=== PATIENT | female | born 1970 | race Caucasian/White ===

== ENCOUNTER 2019-10-27 19:19 | Emergency (ER) | payer MEDICAID ==
[~2019-10-27] VITALS: Ht 162.6 cm; Wt 73.3 kg
[2019-10-27] MEDS ORDERED: METOCLOPRAMIDE 5 MG/ML, 2ML ONE (20:19)
--- NOTE | 2019-10-27 20:23 | NUR ---
PIV PLACED, LABS DRAWN. DIE HOLDER PER JUL. IVF RUNNING.
--- NOTE | 2019-10-27 20:25 | NUR ---
MEDICAL RECORDS REQ FROM [facility].
[2019-10-27] MEDS ORDERED: METOCLOPRAMIDE 5 MG/ML, 2ML IVPush ONE (20:30)
[2019-10-27] MEDS ORDERED: SODIUM CHLORIDE 0.9% 1,000ML IVBOLUS ONE (20:30)
--- NOTE | 2019-10-27 21:00 | NUR ---
PT AMBULATED TO RESTROOM WITH STEADY GAIT. TO PROVIDE URINE SAMPLE. UA COLLECTED AND TAKEN TO LAB.
[2019-10-27 21:10] LABS: HCG UR SG 1.036 (1.003-1.030)
[2019-10-27 21:14] LABS: MICROSCOPIC INDICATED
[2019-10-27 21:14] LABS: ALANINE AMINOTRANSFERASE 24 U/L (12-78); ALBUMIN 4.4 g/dL (3.4-5.0); ANION GAP 9 mmol/L (5-15); CALCIUM 9.1 mg/dL (8.5-10.1); CHLORIDE 98 mmol/L (98-107); CREATININE 1.16 mg/dL (0.55-1.02)
[2019-10-27 21:16] LABS: ALKALINE PHOSPHATASE 54 U/L (45-117); BILIRUBIN,TOTAL 1.9 mg/dL (0.2-1.0); TOTAL PROTEIN 7.9 g/dL (6.4-8.2)
[2019-10-27 21:21] LABS: AMPHETAMINE SCREEN, URINE Negative (Negative); BARBITURATE SCREEN, URINE Negative (Negative); BENZODIAZEPINE SCREEN, URINE Positive (Negative); CANNABINOID SCREEN, URINE Positive (Negative); COCAINE SCREEN, URINE Negative (Negative); METHADONE SCREEN, URINE Negative (Negative); OPIATE SCREEN, URINE Negative (Negative)
[2019-10-27 21:22] LABS: BASOPHILS # (AUTO) 0.03 x10^3/uL (0-0.1); BASOPHILS % (AUTO) 0 % (0-1); EOSINOPHILS # (AUTO) 0.03 x10^3/uL (0-0.4); EOSINOPHILS % (AUTO) 0 % (1-7); LYMPHOCYTES # (AUTO) 1.62 x10^3/uL (1-3.4); LYMPHOCYTES % (AUTO) 11 % (22-44); MD NO; MEAN CORPUSCULAR HEMOGLOBIN 32.1 pg (27.0-34.8); MEAN CORPUSCULAR HGB CONC 33.4 g/dL (32.4-35.8); MEAN CORPUSCULAR VOLUME 96.2 fL (80-100); MEAN PLATELET VOLUME 9.2 fL (7.4-10.4); MONOCYTES # (AUTO) 0.76 x10^3/uL (0.2-0.8); MONOCYTES % (AUTO) 5 % (2-9); NEUTROPHILS # (AUTO) 11.95 x10^3/uL (1.8-6.8); NEUTROPHILS % (AUTO) 83 % (42-75); PLATELET COUNT 367 x10^3/uL (130-400); RED BLOOD COUNT 4.96 x10^6/uL (3.82-5.3); RED CELL DISTRIBUTION WIDTH 13.8 % (9.6-15.2)
--- NOTE | 2019-10-27 21:42 | NUR ---
ALL RESULTS ARE BACK AT THIS TIME. CHART UP FOR RECHECK.
[2019-10-27 21:52] VITALS: BP 150/76
--- NOTE | 2019-10-27 21:52 | NUR ---
PT STATES SHE FEELS BETTER AFTER IVF AND REGLAN.
--- NOTE | 2019-10-27 22:31 | NUR ---
PROVIDER AT BEDSIDE TO UPDATE PT ON POC.
== END 2019-10-27 22:45 | disposition home or self-care (01) ==
LOC: ED 22:10
DX: K52.9 Noninfective gastroenteritis and colitis, unspecified (principal); Z90.49 Acquired absence of other specified parts of digestive tract; Z90.710 Acquired absence of both cervix and uterus; F17.200 Nicotine dependence, unspecified, uncomplicated
CPT/HCPCS: 36415; 80053; 80307; 81001; 81025; 83690; 85025; 87086; 96361; 96374; 99283; J2765; J7030

== ENCOUNTER 2020-02-09 20:22 | Emergency (ER) | payer MEDICAID ==
[~2020-02-09] VITALS: Ht 152.4 cm; Wt 70.0 kg
[2020-02-09 20:44] VITALS: BP 122/98
[2020-02-09] MEDS ORDERED: HYDROcodone/APAP 5/325 TABLET PO STA (21:49)
[2020-02-09] MEDS ORDERED: DIPH,PERTUSS(ACELL),TET VAC/PF 0.5 ML IM-VACC ONE ×2 (22:00→22:50)
[2020-02-09] MEDS ORDERED: NEOSPORIN OINT. PKT 1 PACKET ONE (22:46)
[2020-02-09] MEDS ORDERED: HYDROcodone/APAP 5/325 TABLET ONE (22:50)
== END 2020-02-09 23:25 | disposition home or self-care (01) ==
LOC: ED 22:32
DX: S80.871A Other superficial bite, right lower leg, initial encounter (principal); S81.831A Puncture wound without foreign body, right lower leg, initial encounter; F17.210 Nicotine dependence, cigarettes, uncomplicated; W54.0XXA Bitten by dog, initial encounter; Y93.89 Activity, other specified; Y92.098 Other place in other non-institutional residence as the place of occurrence of the external cause; Y99.8 Other external cause status
CPT/HCPCS: 90471; 90715; 99283

== ENCOUNTER 2020-06-03 21:45 | Emergency (ER) | payer MEDICAID ==
[~2020-06-03] VITALS: Ht 162.6 cm; Wt 81.8 kg
[2020-06-03 21:47] VITALS: BP 112/78
[2020-06-03] MEDS ORDERED: HYDROcodone/APAP 5/325 TABLET ONE (22:12)
[2020-06-03] MEDS ORDERED: DOXYCYCLINE 100MG TABLET ONE (22:12)
--- NOTE | 2020-06-03 22:21 | NUR ---
Tech at bedside to irrigate wound. Pt medicated for pain.
[2020-06-03] MEDS ORDERED: DOXYCYCLINE 100MG TABLET PO ONE (22:30)
[2020-06-03] MEDS ORDERED: HYDROcodone/APAP 5/325 TABLET PO ONE (22:30)
[2020-06-03] MEDS ORDERED: NEOSPORIN OINT. PKT 1 PACKET ONE (22:56)
== END 2020-06-03 23:43 | disposition home or self-care (01) ==
LOC: ED 23:03
DX: S61.252A Open bite of right middle finger without damage to nail, initial encounter (principal); S61.254A Open bite of right ring finger without damage to nail, initial encounter; S61.251A Open bite of left index finger without damage to nail, initial encounter; S61.253A Open bite of left middle finger without damage to nail, initial encounter; F17.210 Nicotine dependence, cigarettes, uncomplicated; I10 Essential (primary) hypertension; G40.909 Epilepsy, unspecified, not intractable, without status epilepticus; Z90.49 Acquired absence of other specified parts of digestive tract; Z90.710 Acquired absence of both cervix and uterus; Z88.0 Allergy status to penicillin; W54.0XXA Bitten by dog, initial encounter; Y93.89 Activity, other specified; Y92.009 Unspecified place in unspecified non-institutional (private) residence as the place of occurrence of the external cause; Y99.8 Other external cause status
CPT/HCPCS: 99283; 99406

== ENCOUNTER 2020-06-05 15:23 | Emergency (ER) | payer MEDICAID ==
[~2020-06-05] VITALS: Ht 162.6 cm; Wt 79.4 kg
[2020-06-05] MEDS ORDERED: LIDOCAINE-MPF 1%, 5ML ONE (15:39)
[2020-06-05] MEDS ORDERED: BUPIVACAINE 0.25% ONE (15:42)
[2020-06-05] MEDS ORDERED: SODIUM CHLORIDE FLUSH 10ML SYR IVF ONE (16:00)
[2020-06-05 16:22] LABS: ANION GAP 6 mmol/L (5-15); CALCIUM 8.3 mg/dL (8.5-10.1); CHLORIDE 106 mmol/L (98-107)
[2020-06-05 16:31] LABS: BASOPHILS % (AUTO) 1 % (0-1); EOSINOPHILS % (AUTO) 1 % (1-7); LYMPHOCYTES % (AUTO) 14 % (22-44); MEAN CORPUSCULAR HGB CONC 34.3 g/dL (32.4-35.8); MEAN PLATELET VOLUME 8.3 fL (7.4-10.4); MONOCYTES % (AUTO) 6 % (2-9); NEUTROPHILS % (AUTO) 78 % (42-75); PLATELET COUNT 305 x10^3/uL (130-400); RED BLOOD COUNT 4.56 x10^6/uL (3.82-5.3); RED CELL DISTRIBUTION WIDTH 13.6 % (9.6-15.2)
[2020-06-05 16:34] LABS: MD NO
[2020-06-05] MEDS ORDERED: OXYcodone/APAP 5/325MG TABLET ONE (17:22)
[2020-06-05] MEDS ORDERED: KETOROLAC 30 MG/1 ML ONE (17:22)
[2020-06-05] MEDS ORDERED: KETOROLAC 30 MG/1 ML IM ONE (17:30)
[2020-06-05] MEDS ORDERED: OXYcodone/APAP 5/325MG TABLET PO ONE (17:30)
[2020-06-05 18:57] VITALS: BP 144/74
== END 2020-06-05 19:10 | disposition home or self-care (01) ==
LOC: ED 18:34
DX: S61.451D Open bite of right hand, subsequent encounter (principal); L03.113 Cellulitis of right upper limb; F17.210 Nicotine dependence, cigarettes, uncomplicated; W54.0XXD Bitten by dog, subsequent encounter
CPT/HCPCS: 29125; 36415; 64450; 80048; 85025; 96372; 99284; J1885